=== PATIENT | female | born 2000 | race Caucasian/White ===

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

== ENCOUNTER 2022-02-23 10:09 | Emergency (ER) | payer MEDICAID ==
[2022-02-23 10:18] VITALS: BP 128/73
[2022-02-23] MEDS ORDERED: IBUPROFEN 800 MG TABLET PO STA (10:45)
[2022-02-23] MEDS ORDERED: PENICILLIN VK 250 MG TABLET PO STA (10:48)
--- NOTE | 2022-02-23 10:48 | ED Physician Documentation ---
History of Present Illness - Stated complaint Stated Complaint: SORE THROAT & BILAT EAR PAIN - Chief complaint Chief Complaint: Heent - History obtained from History obtained from: Patient - History of Present Illness Timing: How many days ago (2-3) Pain level max: 5 Pain level now: 3 - Additonal information Additional information: 21-year-old female presents to the emergency department with sore throat and ear pain, ongoing for the past 2 to 3 days. Has had rhinorrhea and congestion as well. No fevers. No chills. No cough. Denies any possibility of . Has not taken anything for the pain. No wheezing or stridor. Review of Systems Constitutional: denies: Fever, Chills Nose: reports: Rhinorrhea / runny nose Throat: reports: Sore throat GI: denies: Vomiting, Diarrhea Skin: denies: Rash Musculoskeletal: denies: Neck pain, Back pain Neurologic: denies: Headache PD PAST MEDICAL HISTORY - Past Medical History Past Medical History: No - Past Surgical History Past Surgical History: No - Present Medications Home Medications: Ambulatory Orders Medication Instructions Recorded Confirmed Amox/Clav 875/125 [Augmentin] 1 each PO Q12H #14 tablet 08/06/21 Azithromycin [Zithromax] 0 mg PO DAILY #6 tablet 08/06/21 Benzonatate [Tessalon] 100 mg PO TID PRN #20 cap 08/06/21 Ibuprofen [Motrin] 800 mg PO Q8H PRN #30 tablet 02/23/22 Penicillin V Potassium 500 mg PO Q6HR #40 tablet 02/23/22 - Allergies Allergies/Adverse Reactions: Allergies Allergy/AdvReac Type Severity Reaction Status Date / Time No Known Drug Allergies Allergy Verified 02/23/22 10:17 - Social History Does the pt smoke?: No Smoking Status: Never smoker Does the pt drink ETOH?: No Does the pt have substance abuse?: No - Immunizations Immunizations are current?: Yes PD ED PE NORMAL - Vitals Vital signs reviewed: Yes - General General: Alert and oriented X 3, No acute distress - HEENT HEENT: PERRL, Moist mucous membranes, Other (Normal phonation. No trismus. Uvula midline. There is ulceration and exudate to the right tonsil) - Neck Neck: Supple, no meningeal sign - Cardiac Cardiac: RRR, Strong equal pulses - Respiratory Respiratory: No respiratory distress, Clear bilaterally - Abdomen Abdomen: Soft, Non tender, Non distended - Derm Derm: Warm and dry - Extremities Extremities: No edema, No calf tenderness / cord - Neuro Neuro: Alert and oriented X 3 - Psych Psych: Normal mood, Normal affect Results - Vitals Vitals: Vital Signs - 24 hr 02/23/22 10:16 Temperature 37 C Heart Rate 84 Respiratory 16 Rate Blood Pressure 128/73 O2 Saturation 100 Oxygen O2 Source Room air - Labs Labs: Laboratory Tests 02/23/22 11:01 Group A Strep Rapid Negative PD MEDICAL DECISION MAKING - ED course Complexity details: considered differential, d/w patient, d/w family ED course: 21-year-old female with what appears to be tonsillitis. We will place on antibiotics for home. Patient is well-appearing, nontoxic. Afebrile. Rapid strep is negative. No evidence of peritonsillar abscess. Patient counseled regarding signs and symptoms for which I believe and urgent re-evaluation would be necessary. Patient with good understanding of and agreement to plan and is comfortable going home at this time This document was made in part using voice recognition software. While efforts are made to proofread this document, sound alike and grammatical errors may occur. Departure - Departure Disposition: 01 Home, Self Care Clinical Impression: Tonsillitis Condition: Good Instructions: ED Tonsillitis Follow-Up: your,doctor in 1 week if not better [Other] Prescriptions: Penicillin V Potassium 500 mg PO Q6HR #40 tablet Ibuprofen [Motrin] 800 mg PO Q8H PRN #30 tablet PRN Reason: PAIN &/OR FEVER Comments: Please follow up with your doctor for further care. Take all antibiotics until gone. Your prescriptions were sent to [facility] in [place]. Discharge Date/Time: 02/23/22 11:02
[2022-02-23 11:18] LABS: RAPID STREP SCREEN Negative (Negative)
== END 2022-02-23 11:02 | disposition home or self-care (01) ==
LOC: ED 10:09
DX: J03.90 Acute tonsillitis, unspecified (principal)
CPT/HCPCS: 87070; 87430; 99282; 99283

== ENCOUNTER 2022-02-23 17:55 | Emergency (ER) | payer MEDICAID ==
[2022-02-23 18:11] VITALS: BP 124/62
[2022-02-23] MEDS ORDERED: diphenhydrAMINE 25 MG CAPSULE PO STA (18:12)
[2022-02-23] MEDS ORDERED: predniSONE 20 MG TABLET PO STA (18:12)
--- NOTE | 2022-02-23 18:31 | ED Physician Documentation ---
History of Present Illness - Stated complaint Stated Complaint: ALLERGIC REACTION - Chief complaint Chief Complaint: Allergic Rx - History obtained from History obtained from: Patient - History of Present Illness Timing: Today Pain level max: 0 Pain level now: 0 - Additonal information Additional information: Patient is a 21-year-old female who presents to the emergency department after being seen here earlier today for tonsillitis. She was given penicillin and has since broken out in a head to toe rash. No difficulty breathing. No difficulty speaking or swallowing. Has taken penicillin before without issue. Nothing makes it better or worse. Review of Systems Constitutional: denies: Fever, Chills Nose: denies: Rhinorrhea / runny nose, Congestion Throat: denies: Sore throat Cardiac: denies: Chest pain / pressure, Palpitations Respiratory: denies: Dyspnea, Cough, Wheezing GI: denies: Abdominal Pain, Vomiting, Diarrhea : denies: Now EGA PD PAST MEDICAL HISTORY - Past Medical History Past Medical History: No - Past Surgical History Past Surgical History: No - Present Medications Home Medications: Ambulatory Orders Medication Instructions Recorded Confirmed Amox/Clav 875/125 [Augmentin] 1 each PO Q12H #14 tablet 08/06/21 Azithromycin [Zithromax] 0 mg PO DAILY #6 tablet 08/06/21 Benzonatate [Tessalon] 100 mg PO TID PRN #20 cap 08/06/21 Ibuprofen [Motrin] 800 mg PO Q8H PRN #30 tablet 02/23/22 clindamycin HCL [Cleocin HCl] 300 mg PO Q6H #40 cap 02/23/22 - Allergies Allergies/Adverse Reactions: Allergies Allergy/AdvReac Type Severity Reaction Status Date / Time penicillin V Allergy Mild Rash Verified 02/23/22 18:29 - Social History Does the pt smoke?: No Smoking Status: Never smoker Does the pt drink ETOH?: No Does the pt have substance abuse?: No - Immunizations Immunizations are current?: Yes PD ED PE NORMAL - Vitals Vital signs reviewed: Yes - General General: Alert and oriented X 3, No acute distress - HEENT HEENT: Moist mucous membranes, Pharynx benign (Normal phonation. No trismus. Right tonsil with ulceration and exudate) - Neck Neck: Supple, no meningeal sign - Cardiac Cardiac: RRR, Strong equal pulses - Respiratory Respiratory: No respiratory distress, Clear bilaterally - Abdomen Abdomen: Soft, Non tender, Non distended - Derm Derm: Warm and dry, Other (Diffuse urticaria.) - Neuro Neuro: Alert and oriented X 3 - Psych Psych: Normal mood, Normal affect Results - Vitals Vitals: Vital Signs - 24 hr 02/23/22 18:07 Temperature 37.4 C Heart Rate 120 H Respiratory 22 Rate Blood Pressure 124/62 O2 Saturation 98 Oxygen O2 Source Room air PD MEDICAL DECISION MAKING - ED course Complexity details: reviewed results, re-evaluated patient, considered differential, d/w patient ED course: We will change the patient from penicillin to clindamycin. Also given prednisone and Benadryl. No anaphylaxis. Patient counseled regarding signs and symptoms for which I believe and urgent re-evaluation would be necessary. Patient with good understanding of and agreement to plan and is comfortable going home at this time This document was made in part using voice recognition software. While efforts are made to proofread this document, sound alike and grammatical errors may occ ur. Departure - Departure Disposition: 01 Home, Self Care Clinical Impression: Tonsillitis Allergic reaction Qualifiers: Encounter type: initial encounter Qualified Code(s): T78.40XA - Allergy, unspecified, initial encounter Condition: Good Instructions: ED Drug React Allergic Follow-Up: your,doctor in 1 week [Other] Prescriptions: clindamycin HCL [Cleocin HCl] 300 mg PO Q6H #40 cap Comments: Your prescription was changed to clindamycin. Please follow up with your doctor for further care. Stop any penicillin.
== END 2022-02-23 18:44 | disposition home or self-care (01) ==
LOC: ED 17:55
DX: T78.40XA Allergy, unspecified, initial encounter (principal); J03.90 Acute tonsillitis, unspecified
CPT/HCPCS: 87070; 87430; 99282; 99283; A9270

== ENCOUNTER 2022-08-18 09:09 | Emergency (ER) | payer MEDICAID, OTHER ==
[2022-08-18 09:39] VITALS: BP 139/78
[2022-08-18] MEDS ORDERED: LIDOCAINE 1%-EPI 1:100000 20 ML MDV SUBQ STA (11:10)
--- NOTE | 2022-08-18 11:28 | ED Physician Documentation ---
History of Present Illness - Stated complaint Stated Complaint: CONTROL ISSUE - Chief complaint Chief Complaint: Ext Problem - History obtained from History obtained from: Patient, Family (Mother) - History of Present Illness Timing: Today Pain level max: 3 Pain level now: 2 - Additonal information Additional information: 22-year-old female presents to the emergency department complaining of pain at her Nexplanon site. She has had the Nexplanon for almost 3 years. She states that she would like it removed today. No redness. No swelling. Worse with palpation and movement. No fevers. No chills. Review of Systems Constitutional: denies: Fever, Chills GI: denies: Vomiting, Diarrhea : denies: Now EGA Skin: denies: Rash Musculoskeletal: denies: Neck pain, Back pain Neurologic: denies: Headache PD PAST MEDICAL HISTORY - Past Medical History Past Medical History: Yes - Past Surgical History Past Surgical History: No - Present Medications Home Medications: Ambulatory Orders Medication Instructions Recorded Confirmed Amox/Clav 875/125 [Augmentin] 1 each PO Q12H #14 tablet 08/06/21 Azithromycin [Zithromax] 0 mg PO DAILY #6 tablet 08/06/21 Benzonatate [Tessalon] 100 mg PO TID PRN #20 cap 08/06/21 Ibuprofen [Motrin] 800 mg PO Q8H PRN #30 tablet 02/23/22 clindamycin HCL [Cleocin HCl] 300 mg PO Q6H #40 cap 02/23/22 - Allergies Allergies/Adverse Reactions: Allergies Allergy/AdvReac Type Severity Reaction Status Date / Time penicillin V Allergy Mild Rash Verified 08/18/22 09:39 - Social History Does the pt smoke?: No Smoking Status: Never smoker Does the pt drink ETOH?: No Does the pt have substance abuse?: No - Immunizations Immunizations are current?: Yes PD ED PE NORMAL - Vitals Vital signs reviewed: Yes - General General: Alert and oriented X 3, No acute distress - Derm Derm: Warm and dry - Extremities Extremities: Other (R UE - nexplanon in place. normal overlying skin. ) - Neuro Neuro: Alert and oriented X 3 - Psych Psych: Normal mood, Normal affect Results - Vitals Vitals: Vital Signs - 24 hr 08/18/22 09:35 Temperature 36.9 C Heart Rate 79 Respiratory 16 Rate Blood Pressure 139/78 H O2 Saturation 98 Oxygen O2 Source Room air Procedures - General procedure General procedure: Nexplanon removal - Verbal consent obtained from the patient. 1% lidocaine with epinephrine was injected under the tip of the Nexplanon implant. A longitudinal incision was then made over the tip. Jakob forceps with teeth were used to grasp the Nexplanon implant and it was removed. A Steri-Strip and Dermabond were applied over the incision. No further bleeding. No complications. PD Medical Decision Making - ED course Complexity details: considered differential, d/w patient ED course: Patient here requesting her Nexplanon be removed. As it was causing pain. This was performed. Tolerated well. No complications. Patient will follow up with her PCP to discuss control options. She understands that she is no longer protected against unintended . Patient counseled regarding signs and symptoms for which I believe and urgent re-evaluation would be necessary. Patient with good understanding of and agreement to plan and is comfortable going home at this time This document was made in part using voice recognition software. While efforts are made to proofread this document, sound alike and grammatical errors may occur. Departure - Departure Disposition: 01 Home, Self Care Clinical Impression: Nexplanon removal Condition: Good Instructions: Etonogestrel implant Follow-Up: your,doctor in 1 week [Other] Comments: Your Nexplanon was removed today at your request. You are no longer protected against . Please use alternative methods of control and follow- up with your primary care provider/lehr loader to discuss control options.
== END 2022-08-18 11:43 | disposition home or self-care (01) ==
LOC: ED 09:09
DX: T85.9XXA Unspecified complication of internal prosthetic device, implant and graft, initial encounter (principal); M79.621 Pain in right upper arm
CPT/HCPCS: 11982; 99281

== ENCOUNTER 2022-09-10 09:04 | Emergency (ER) | payer MEDICAID ==
[2022-09-10 10:53] LABS: BILIRUBIN,URINE NEGATIVE (NEGATIVE); GLUCOSE, URINE (UA) NEGATIVE (NEGATIVE); KETONES,URINE (UA) NEGATIVE (NEGATIVE); LEUKOCYTE ESTERASE, URINE NEGATIVE (NEGATIVE); NITRITE,URINE NEGATIVE (NEGATIVE); OCCULT BLOOD,URINE LARGE (NEGATIVE); PROTEIN,URINE NEGATIVE (NEGATIVE); UROBILINOGEN,URINE 0.2 (NORMAL) E.U./dL (NORMAL)
[2022-09-10 11:02] LABS: CLARITY,URINE SL. CLOUDY (CLEAR); HCG UR QUAL NEGATIVE
[2022-09-10 11:06] LABS: BACTERIA,URINE Few /HPF (None Seen); SQUAMOUS EPITHELIAL CELL,UR FEW Squamous (<= Few)
--- NOTE | 2022-09-10 11:50 | ED Physician Documentation ---
History of Present Illness - Stated complaint Stated Complaint: FEMALE - Chief complaint Chief Complaint: General - Additonal information Additional information: 22-year-old female presents to the emergency department for evaluation of heavy vaginal bleeding. Reports that she had Nexplanon in place but it was removed on August 17, 2022 due to malpositioning and pain. She did have what she would describe as irregular menstrual cycle that began about 1 week after removal. However On September 08 she began having another cycle of vaginal bleeding that she describes as heavy. She states that she has had to change her to pad or tampon typically once or twice an hour for the last few days. No fainting, she does endorse abdominal cramping but no dysuria urgency or frequency. No vomiting. No fevers. No pertinent past surgical history. Patient is a heavy vapor. Review of Systems Constitutional: reports: Reviewed and negative Cardiac: reports: Reviewed and negative Respiratory: reports: Reviewed and negative GI: reports: Abdominal Pain : reports: Vaginal bleeding, Irregular menses Skin: reports: Reviewed and negative Musculoskeletal: reports: Reviewed and negative Neurologic: denies: Generalized weakness, Syncope, Headache PD PAST MEDICAL HISTORY - Past Surgical History Past Surgical History: No - Present Medications Home Medications: Ambulatory Orders Medication Instructions Recorded Confirmed No Known Home Medications 09/10/22 09/10/22 - Allergies Allergies/Adverse Reactions: Allergies Allergy/AdvReac Type Severity Reaction Status Date / Time penicillin V Allergy Mild Rash Verified 09/10/22 09:19 - Social History Does the pt smoke?: No Smoking Status: Never smoker Does the pt drink ETOH?: No Does the pt have substance abuse?: No - Immunizations Immunizations are current?: Yes PD ED PE NORMAL - General General: Alert and oriented X 3, No acute distress, Well developed/nourished - HEENT HEENT: Atraumatic - Neck Neck: Supple, no meningeal sign, No adenopathy - Cardiac Cardiac: RRR, No murmur - Respiratory Respiratory: No respiratory distress, Clear bilaterally - Abdomen Abdomen: Normal bowel sounds, Soft - Female Female : Sales Representative Advertising present, Other (Limited pelvic exam reveals a closed cervical os. Moderate to large amount of bright red blood in the vault. Small amount of clots. 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 Eye Opening: Spontaneous Motor: Obeys Commands Verbal: Oriented GCS Score: 15 Results - Vitals Vitals: Vital Signs - 24 hr 09/10/22 09/10/22 09:19 11:49 Temperature 36.3 C L Heart Rate 60 54 L Respiratory 18 18 Rate Blood Pressure 129/68 129/66 O2 Saturation 98 100 Oxygen O2 Source Room air - Labs Labs: Laboratory Tests 09/10/22 09/10/22 09/10/22 10:42 12:11 12:11 WBC 6.6 RBC 4.32 Hgb 12.8 Hct 39.1 MCV 90.5 MCH 29.6 MCHC 32.7 RDW 12.7 Plt Count 390 MPV 10.0 Neut # (Auto) 3.5 Lymph # (Auto) 2.4 Lynn # (Auto) 0.4 Eos # (Auto) 0.2 Baso # (Auto) 0.1 Absolute Nucleated RBC 0.00 Nucleated RBC % 0.0 Sodium 138 Potassium 4.4 Chloride 104 Carbon Dioxide 25 Anion Gap 9.0 BUN 11 Creatinine 0.7 Estimated GFR (MDRD) 107 Glucose 100 Calcium 8.8 Urine Color YELLOW Urine Clarity SL. CLOUDY Urine pH 6.0 Ur Specific [place] >=1.030 H Urine Protein NEGATIVE Urine Glucose (UA) NEGATIVE Urine Ketones NEGATIVE Urine Occult Blood LARGE H Urine Nitrite NEGATIVE Urine Bilirubin NEGATIVE Urine Urobilinogen 0.2 (NORMAL) Ur Leukocyte Esterase NEGATIVE Urine RBC 11-25 H Urine WBC 4-5 Ur Squamous Epith Cells FEW Squamous Urine Bacteria Few Ur Microscopic Review INDICATED Urine Culture Comments NOT INDICATED Urine HCG, Qual NEGATIVE PD Medical Decision Making - ED course Complexity details: considered differential, d/w patient, d/w family ED course: 22-year-old female presents emergency department for evaluation of 4 days heavy vaginal bleeding. This is in the setting of recent Nexplanon implant removal. This was completed on 17 August. 1 week following that she did have a regular menstrual cycle. However 4 days ago she began having heavy vaginal bleeding reporting changing pad or tampon every hour. On exam the patient appears remarkably well without tachycardia or hypotension. She is not dyspneic orthopneic or having any fainting spells. I did obtain a CBC today which shows a hemoglobin of 12.8. Essentially unchanged from most recent one about 2 years ago showing 13.1. Her electrolytes were unremarkable. I did do a limited pelvic exam and there is a large amount of blood in the vault. However given the clinical stability and the unremarkable hemoglobin at this time I offered the patient careful observation watch and see approach which she feels is okay. I discussed that if her vaginal bleeding suddenly worsen, she had fainting spells, tachycardia or felt that the symptoms were not getting better after 7 to 10 days and she would return immediately to the ER. I have encouraged her to follow closely with the PCP. She is discharged home in stable condition Departure - Departure Disposition: 01 Home, Self Care Clinical Impression: Episode of heavy vaginal bleeding Condition: Stable Record reviewed to determine appropriate education?: Yes Comments: Karo came to the ER today because for about the last 4 days you have been having some heavy vaginal bleeding. This is likely the consequence of the recent Nexplanon removal as your body starts to develop its own rhythm and cycle. We did check your CBC today and it is normal and essentially unchanged from a hemoglobin checked a few years ago. At this time I think it is okay to do a careful watch, wait and see approach. If you find that your vaginal bleeding is not decreasing after 7 to 10 days, or you begin to have suddenly severe bleeding, any fainting episodes or racing heart or shortness of air you should return immediately to the ER. I encourage you to follow closely with a primary care doctor to discuss this. In some cases of Irregular vaginal bleeding it can be important to read initiate oral hormonal contraceptives.
[2022-09-10 12:16] LABS: BASOPHILS # (AUTO) 0.1 10^3/uL (0.0-0.1); BASOPHILS % (AUTO) 0.8 %; EOSINOPHILS # (AUTO) 0.2 10^3/uL (0.0-0.7); EOSINOPHILS % (AUTO) 2.7 %; HCT - HEMATOCRIT 39.1 % (37.0-47.0); HGB - HEMOGLOBIN 12.8 g/dL (12.0-16.0); LYMPHOCYTES # (AUTO) 2.4 10^3/uL (1.5-3.5); LYMPHOCYTES % (AUTO) 36.7 %; MEAN CORPUSCULAR HEMOGLOBIN 29.6 pg (27.0-31.0); MEAN CORPUSCULAR HGB CONC 32.7 g/dL (32.0-36.0); MEAN CORPUSCULAR VOLUME 90.5 fL (81.0-99.0); MONOCYTES # (AUTO) 0.4 10^3/uL (0.0-1.0); MONOCYTES % (AUTO) 5.8 %; NEUTROPHILS # (AUTO) 3.5 10^3/uL (1.5-6.6); NEUTROPHILS % (AUTO) 53.7 %; PLT - PLATELET COUNT 390 10^3/uL (130-450); RED BLOOD COUNT 4.32 10^6/uL (4.20-5.40); RED CELL DISTRIBUTION WIDTH 12.7 % (12.0-15.0); WHITE BLOOD COUNT 6.6 x10^3/uL (4.8-10.8)
[2022-09-10 12:23] LABS: CALCIUM 8.8 mg/dL (8.5-10.3); CREATININE 0.7 mg/dL (0.4-1.0); POTASSIUM 4.4 mmol/L (3.5-5.0)
[2022-09-10 13:05] VITALS: BP 126/62
== END 2022-09-10 13:04 | disposition home or self-care (01) ==
LOC: ED 09:04
DX: N93.9 Abnormal uterine and vaginal bleeding, unspecified (principal)
CPT/HCPCS: 36415; 80048; 81001; 81003; 81025; 85025; 87086; 99282; 99283